=== PATIENT | male | born 1980 | race Caucasian/White ===

== ENCOUNTER 2019-09-28 14:39 | Outpatient (CLI) | payer OTHER, SELFPAY ==
--- NOTE | ~2019-09-28 | XR_ITS ---
EXAMINATION: XR shoulder LT min 2V EXAM DATE: 09/28/2019 15:25 INDICATION: No known recent injury provided at this time. Pain of the left shoulder. TECHNIQUE: The following left shoulder projections obtained: frontal projection with internal rotatio n, frontal projection with external rotation, Grashey, and scapular Y view (4+ views). There is no p rior study for comparison. FINDINGS: No evidence of left shoulder rotator cuff calcific tendinosis. There is mild acromioclav icular joint primary osteoarthritis. There are no acute fractures or dislocations identified. There is no subcutaneous gas. The soft tissue is unremarkable. There are no radiopaque foreign bodies. IMPRESSION: Mild left acromioclavicular joint osteoarthritis. Reviewed, dictated and finalized at location B. 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
--- NOTE | ~2019-09-28 | XR_ITS ---
EXAMINATION: XR chest 2V EXAM DATE: 09/28/2019 15:24 INDICATION: Posterior chest pain. Bilateral shoulder pain. TECHNIQUE: Frontal and lateral projections of the chest obtained and reviewed. There is no prior stacy dy for comparison. FINDINGS: The lungs are clear. There are no pleural effusions. The cardiomediastinal silhouette is within normal limits. There is no pneumothorax suspected. The bones and soft tissues are unremarkab le. IMPRESSION: Normal chest x-ray exam. Reviewed, dictated and finalized at location B. MATIC EDGER IMPRESSION: Normal chest x-ray exam.
--- NOTE | ~2019-09-28 | XR_ITS ---
EXAMINATION: XR shoulder RT min 2V EXAM DATE: 09/28/2019 15:26 INDICATION: No known recent injury provided at this time. Pain of the right shoulder. TECHNIQUE: The following right shoulder projections obtained: frontal projection with internal rotati on, frontal projection with external rotation, Grashey, and scapular Y view (4+ views). There is no prior study for comparison. FINDINGS: No evidence of right shoulder rotator cuff calcific tendinosis. There is moderate acromi oclavicular joint primary osteoarthritis. There are no acute fractures or dislocations identified. T here is no subcutaneous gas. The soft tissue is unremarkable. There are no radiopaque foreign bodi es. IMPRESSION: Moderate right acromioclavicular joint osteoarthritis. Reviewed, dictated and finalized at location B. CHANGER
--- NOTE | ~2019-09-28 | XR_ITS ---
EXAMINATION: XR lumbar spine 2-3V EXAM DATE: 09/28/2019 15:27 INDICATION: Low back pain. TECHNIQUE: Lumber spine frontal, lateral, lateral L5-S1 projections for interpretation. There is no prior study for comparison. FINDINGS: Vertebral body and disc heights are well-maintained. There is 3 mm retrolisthesis L5 on S 1. The vertebral bodies are otherwise aligned. Mild lumbar facet arthropathy. There are cholecystecto my clips. Sacrum, sacroiliac joints, sacral arcuate lines are intact. Paraspinal IMPRESSION: 1. Grade 1 retrolisthesis L5 on S1. 2. Mild facet arthropathy. Reviewed, dictated and finalized at location B. TREATMENT OFFSIDER
--- NOTE | ~2019-09-28 | XR_ITS ---
EXAMINATION: XR_CERV2-3V_CR EXAM DATE: 09/28/2019 15:25 INDICATION: No known recent injury provided at this time. Pain of the neck. TECHNIQUE: Cervical spine frontal, lateral, open-mouth odontoid projections. There is no prior stud y for comparison. FINDINGS: There is mild disc disease at C5-6. There is moderate reversal of the normal cervical lord osis which may be positional or spasm. There is no evidence of acute cervical fracture. The odontoid process is intact. Pre-dens space is normal. Prevertebral soft tissue is normal. There is mild cer vical facet arthropathy. There are no soft tissue abnormalities identified. The vertebral bodies ar e aligned. IMPRESSION: 1. Reversal cervical lordosis could indicate muscular spasm. 2. Mild spondylosis. Reviewed, dictated and finalized at location B. N [employer] SUPERVISOR
== END 2019-09-28 14:40 | disposition home or self-care (01) ==
PROVIDERS: PCP Internal Medicine; Visit Provider Internal Medicine
DX: R19.7 Diarrhea, unspecified (principal); M54.5 Low back pain; M54.2 Cervicalgia; M25.512 Pain in left shoulder; M25.511 Pain in right shoulder
CPT/HCPCS: 71046; 72040; 72100; 73030

== ENCOUNTER 2019-10-30 13:57 | Outpatient (RCR) | payer OTHER, SELFPAY ==
--- NOTE | 2019-10-30 15:00 | PTOPEVAL ---
Thank you for referring this patient to [facility]. Please review, sign, date and return this plan of care [facility]. I agree with and certify that the following plan of care is medically necessary. Referring Physician Date Admitting Provider: Attending Provider: Lorelei Dowell MD Referring Provider: *PT Outpatient Evaluation Start: 10/30/19 14:08 Freq: Status: Active Protocol: Document 10/30/19 14:08 VIC (Rec: 10/30/19 14:52 VIC [id number]) Therapy Assessment Status Assessment Status Assessment Status Evaluation Evaluation Information Problem Diagnosis neck pain, low back pain, left shoulder pain Onset 10/29/18 Subjective Information Pt. reports that he has had Query Text:As Reported By Patient/ worsening back pain over the Family past year. He describes back pain in the area of the low back that can radiate into the l.e. down to the calfs. He reports that back pain is constant. He does have chronic neck and left shoulder pain, but states that his low back is his worst pain. He reports that he avoids most activities due to chronic low back pain. He reports that neck and shoulder do not limit his activity as much. He avoids any vigorious activities due to his back pain. He is not currently working and has not for a long period. 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 He reports that his goal is to decrease his low back pain. Prior Level of Function Activity Level (Last 3 Months) Occupation unemployed Hand Dominance Right Activity of Daily Living Ability Independent Indoor/Home Mobility Independent Community Mobility Independent Stairs Ability Independent Functional Cognition (Planning, Shopping Independent , Taking Medications) Cooking Yes Cleaning Yes Laundry Yes Shopping Yes Driving No Pain
--- NOTE | 2019-11-01 13:14 | PCPTNOTE ---
11/01/19-pt cancelled secondary to lack of transportation.-.
--- NOTE | 2019-12-14 07:25 | PTOPEVAL ---
Thank you for referring Jake Izquierdo II to [facility]. Please review, sign, date and return this plan of care [facility]. I agree with and certify that the following plan of care is medically necessary. Referring Physician Date Admitting Provider: Attending Provider: Lorelei Dowell MD Referring Provider: *PT Outpatient Evaluation Start: 10/30/19 14:08 Freq: Status: Active Protocol: Document 12/13/19 14:00 VIC (Rec: 12/14/19 07:24 VIC [id number]) Therapy Assessment Status Assessment Status Assessment Status Discharge Evaluation Information Problem Diagnosis acute worsening neck pain Subjective Information Pt. reports that nothing is Query Text:As Reported By Patient/ relieving his pain. He Family continues to describe pain across the low back and into the neck and left shoulder blade. He reports that his day consist of navigating stairs and doing housework. He reports that he cannot enjoy his normal recreational activities. He reports that he is ready to quit therapy due to its inability to help relieve pain. Pain Assessment Pain Scale Pain Scale Used Numeric (1 - 10) Self Report Pain Assessment Left Shoulder(s) Reported Pain Level 5 Neck Reported Pain Level 5 Lower Back Reported Pain Level 6 Pain Score Pain Score 5,5,6: Self Report Cervical and Lumbar ROM Cervical ROM Cervical Flexion (0-60) 50 Query Text:Active in Degrees Cervical Extension (0-70) 60 Query Text:Active in Degrees Cervical Lateral Flexion Right (0-50) 40 Query Text:Active in Degrees Cervical Lateral Flexion Left (0-50) 32 Query Text:Active in Degrees Cervical Rotation Right (0-90) 75 Query Text:Active in Degrees Cervical Rotation Left (0-90) 60 Query Text:Active in Degrees Lumbar ROM Lumbar Flexion Active Mid Melara Query Text:Hands to: Lumbar Lateral Flexion Right (0-40) 40 Query Text:Active in Degrees Lumbar Lateral Flexion Left (0-40) 40 Query Text:Active in Degrees Palpation Assessment Palpation Palpation TTP noted at the area of the medial left shoulder blade and into the cervical paraspinals . Special Test-Spine Cervical Spine Special Tests Foraminal Compression (Spurling) Posit
== END 2019-12-13 10:07 | disposition home or self-care (01) ==
LOC: CHSPT 13:57
PROVIDERS: PCP Internal Medicine; Visit Provider Internal Medicine
DX: M54.2 Cervicalgia (principal); M54.9 Dorsalgia, unspecified; M25.512 Pain in left shoulder; M25.511 Pain in right shoulder; M19.90 Unspecified osteoarthritis, unspecified site
CPT/HCPCS: 97012; 97014; 97110; 97161; 97164; G0283

== ENCOUNTER 2019-12-29 08:10 | Outpatient (CLI) | payer OTHER, SELFPAY ==
--- NOTE | ~2019-12-29 | MR_ITS ---
EXAMINATION: MR cervical spine wo con DATE: 12/29/2019 09:05 INDICATION: Neck pain. TECHNIQUE: Magnetic resonance imaging (MRI) of the cervical spine was performed without intravenous c ontrast. Sequences included sagittal T2-weighted FSE, sagittal T2-weighted FS FSE, sagittal T1-weight ed FSE, axial MERGE, and axial T2-weighted FSE. COMPARISON: Cervical spine radiographs 09/28/2019 FINDINGS: Bone alignment is normal. Vertebral body heights and intervertebral disc heights are normal . The spinal cord signal intensity is normal. The following disc levels are specifically discussed: C2-C3: The disc does not extend beyond the endplate margin. There is mild left uncovertebral joint os teoarthritis. There is mild bilateral facet joint osteoarthritis. There is mild left neural foraminal stenosis. There is no central canal stenosis. C3-C4: The disc is mildly bulging. There is no uncovertebral joint osteoarthritis. There is mild bila teral facet joint osteoarthritis. There is mild left neural foraminal stenosis. There is no central c anal stenosis. C4-C5: The disc is mildly bulging. There is no uncovertebral joint osteoarthritis. There is mild bila teral facet joint osteoarthritis. There is no neural foraminal stenosis. There is mild central canal stenosis. C5-C6: There is a right central extrusion. There is mild right uncovertebral joint osteoarthritis. Th ere is no facet joint osteoarthritis. There is mild right neural foraminal stenosis. There is mild ce ntral canal stenosis with ventral indentation of spinal cord. C6-C7: There is a left central and foraminal zone extrusion. There is mild left uncovertebral joint o steoarthritis. There is no facet joint osteoarthritis. There is mild left neural foraminal stenosis. There is mild central canal stenosis. C7-T1: The disc does not extend beyond the endplate margin. There is no uncovertebral joint osteoarth ritis. There is mild bilateral facet joint osteoarthritis. There is no neural foraminal stenosis. The re is no central canal stenosis. IMPRESSION: 1. Mild cervical spondylosis. Reviewed, dictated and finalized at location A.
== END 2019-12-29 08:11 | disposition home or self-care (01) ==
PROVIDERS: PCP Internal Medicine; Visit Provider Internal Medicine
DX: M54.2 Cervicalgia (principal)
CPT/HCPCS: 72141

== ENCOUNTER 2020-01-02 14:59 | Outpatient (RCR) | payer OTHER, SELFPAY ==
--- NOTE | 2020-01-04 09:58 | PTOPEVAL ---
Thank you for referring Jake Izquierdo to [facility]. Please review, sign, date and return this plan of care [facility]. I agree with and certify that the following plan of care is medically necessary. Referring Physician Date Admitting Provider: Attending Provider: Lorelei Dowell MD Referring Provider: *PT Outpatient Evaluation Start: 01/02/20 15:06 Freq: Status: Active Protocol: Document 01/02/20 15:00 JTF (Rec: 01/02/20 15:42 [facility] [id number]) Therapy Assessment Status Assessment Status Assessment Status Evaluation Evaluation Information Problem Diagnosis L shoulder pain, low back pain , neck pain Onset 01/01/20 Subjective Information patient reports he did have an Query Text:As Reported By Patient/ MRI of the cervical spine Family that came back negative. he reports he is still having pain in the L shoulder and the lower back. he reports he is trying to get an MRI of the low back and the shoulder. he reports he is still having pain in the neck as well. he reports he has increased pain in the L shoulder with reaching up overhead. he reports he was reaching for cooking spray and was buckled under pain. he reports the back is increased in pain with standing, walking, bending. Prior Level of Function Comments Additional Prior Level of Function patient reports he has been Comments having these similar issues for about 2 years or more. Pain Assessment Timing of Pain Assessment Timing of Pain Assessment Assessment Pain Scale Pain Scale Used Numeric (1 - 10) Self Report Pain Assessment Neck Reported Pain Level 3 Pain Description Dull Lowest Pain Intensity 2 Greatest Pain Intensity 3 Lower Back Reported Pain Level 7 Pain Description Shooting Lowest Pain Intensity 5 Greatest Pain Intensity 10 Left Shoulder(s) Reported Pain Level 4 Pain Description Dull Other Pain Description knotting up Lowest Pain Intensity 4 Greatest Pain Intensity 9 Pain Score Pain Score 4,7,3: Self Report Additional Pain Score Comments patient reports he has pain
== END 2020-02-02 16:10 | disposition home or self-care (01) ==
LOC: CHSPT 14:59
PROVIDERS: PCP Internal Medicine; Visit Provider Internal Medicine
DX: M25.512 Pain in left shoulder (principal); M54.5 Low back pain; M54.2 Cervicalgia
CPT/HCPCS: 97012; 97014; 97110; 97140; 97162; G0283

== ENCOUNTER 2020-05-22 08:27 | Outpatient (CLI) | payer OTHER, SELFPAY ==
--- NOTE | ~2020-05-22 | MR_ITS ---
EXAMINATION: MR lumbar spine wo con EXAM DATE: 05/22/2020 09:24 INDICATION: Low back pain. TECHNIQUE: Multi-sequential, multiplanar MR images of the lumbar spine were obtained without contrast . Sagittal T1, T2, T2 fat saturation images. Axial T2 weighted images. There is no prior study for comparison. FINDINGS: The vertebral bodies are aligned in the AP dimension. Vertebral body and disc heights ar e well-maintained. There are no suspicious marrow signal abnormalities. The conus medullaris termin ates at the T12-L1 level and has normal signal intensity and morphology. Paraspinal soft tissue is u nremarkable. Level by level evaluation: T12-L1: Disc does not extend beyond the endplate margin. Facet arthropathy: None. Neural foraminal stenosis: No stenosis. Central canal stenosis: No stenosis. L1-L2: Disc does not extend beyond the endplate margin. Facet arthropathy: None. Neural foraminal stenosis: No stenosis. Central canal stenosis: No stenosis. L2-L3: Disc does not extend beyond the endplate margin. Facet arthropathy: None. Neural foraminal stenosis: No stenosis. Central canal stenosis: No stenosis. L3-L4: Disc does not extend beyond the endplate margin. Facet arthropathy: Minimal. Neural foraminal stenosis: No stenosis. Central canal stenosis: No stenosis. L4-L5: Disc does not extend beyond the endplate margin. Facet arthropathy: Mild. Neural foraminal stenosis: No stenosis. Central canal stenosis: No stenosis. L5-S1: Disc does not extend beyond the endplate margin. Facet arthropathy: Mild. Neural foraminal stenosis: No stenosis. Central canal stenosis: No stenosis. IMPRESSION: 1. Mild lower lumbar facet arthropathy. Reviewed, dictated and finalized at location B.
== END 2020-05-22 08:28 | disposition home or self-care (01) ==
PROVIDERS: PCP Internal Medicine; Visit Provider Internal Medicine
DX: M54.5 Low back pain (principal)
CPT/HCPCS: 72148

== ENCOUNTER 2020-06-10 00:55 | Outpatient (CLI) | payer OTHER, SELFPAY ==
[2020-06-10 16:30] LABS: SARS-CoV-2 RNA PCR Negative
== END 2020-06-10 00:56 | disposition home or self-care (01) ==
LOC: ANHCOVIDDT 00:55
PROVIDERS: PCP Internal Medicine; Visit Provider Plastic Surgery
DX: Z01.812 Encounter for preprocedural laboratory examination (principal); Z20.828 Contact with and (suspected) exposure to other viral communicable diseases
CPT/HCPCS: 87635; C9803; U0003

== ENCOUNTER 2020-06-12 00:54 | Day surgery (SDC) | payer OTHER, SELFPAY ==
[2020-06-07 14:50] VITALS: BMI 28.3
--- NOTE | 2020-06-12 07:03 | WPDHPUPDATE1 ---
History and Physical Update Update Date/Time: 06/12/20 07:03 History and Physical has been reviewed, including an updated exam of the patient. There are NO changes in the patient's condition. Risks, benefits, and alternatives have been discussed and questions answered. Patient agrees to proceed with procedure.
--- NOTE | 2020-06-12 08:48 | PM.OP ---
Procedure Note - Brief Procedure Note - Brief Date of procedure: 06/12/20 Pre-op diagnosis: Right Carpal Tunnel Post-op diagnosis: same Procedure performed: Right open carpal tunnel release. Anesthesia: local Surgeon: Willard Hills MD Estimated blood loss (mL): 2 Drains: No Packing: No Pathology: none sent Complications: No immediate complications Condition: stable Disposition: same day
[2020-06-12 09:00] VITALS: BP 135/83; PULSE 99; RESP 16; O2SAT 99
[2020-06-12] MEDS: LIDO 1%/EPINEPHRINE 1:100,000 20 ML VIAL INFILTRATE (09:04)
[2020-06-12 09:10] VITALS: BP 128/76; PULSE 89; RESP 16; O2SAT 99
--- NOTE | 2020-06-12 09:23 | P.OP_ITS ---
Procedure Note - Detailed Date of procedure: 06/12/20 Pre-op diagnosis: Right Carpal Tunnel Post-op diagnosis: same Procedure performed: Right open carpal tunnel release Description of procedure: The right wrist was marked as the patient waited in the holding area. He was taken to the operating room and placed supine on the operating table. A time-out was held and confirmed. The extremity was prepped and draped in usual fashion. The site was remarked for the incision and locally infiltrated with 1% with epinephrine. The incision was made as marked and dissection was carried through the subcutaneous tissue to the palmar fascia. Th is and the carpal ligament were incised with a 15. Blade. Under 3 point retraction the ligament divided distally and proximally to completely release it. No unusual anatomy was noted. The skin was closed with interrupted 4-0 nylon suture. The usual bandage was applied and the patient was discharged from the operating room in stable condition. Anesthesia: local Surgeon: Willard Hills MD Estimated blood loss (mL): 1 Tourniquet time (min): 0 Drains: No Packing: No Pathology: none sent Complications: No immediate complications Condition: stable Disposition: same day
[2020-06-12 09:25] VITALS: BP 132/86; PULSE 90; RESP 16
== END 2020-06-12 09:44 | disposition home or self-care (01) ==
PROVIDERS: PCP Internal Medicine; Visit Provider Plastic Surgery
PROC: (CPT 64721; principal; 2020-06-12 09:00)
DX: G56.01 Carpal tunnel syndrome, right upper limb (principal)
CPT/HCPCS: 64721; A9270

== ENCOUNTER 2020-07-01 01:42 | Outpatient (CLI) | payer OTHER, SELFPAY ==
[2020-07-01 21:23] LABS: SARS-CoV-2 RNA PCR Negative
== END 2020-07-01 01:43 | disposition home or self-care (01) ==
LOC: ANHCOVIDDT 01:42
PROVIDERS: PCP Internal Medicine; Visit Provider Plastic Surgery
DX: Z01.812 Encounter for preprocedural laboratory examination (principal); Z20.828 Contact with and (suspected) exposure to other viral communicable diseases
CPT/HCPCS: 87635; C9803; U0003

== ENCOUNTER 2020-07-04 02:05 | Day surgery (SDC) | payer OTHER, SELFPAY ==
[2020-06-26 11:49] VITALS: BMI 28.3
--- NOTE | 2020-07-04 07:23 | WPDHPUPDATE1 ---
History and Physical Update Update Date/Time: 07/04/20 07:23 History and Physical has been reviewed, including an updated exam of the patient. There are NO changes in the patient's condition. Risks, benefits, and alternatives have been discussed and questions answered. Patient agrees to proceed with procedure.
[2020-07-04 07:30] VITALS: BP 134/81; PULSE 95; TEMP 36.7; O2SAT 100
[2020-07-04 07:55] VITALS: BP 139/84; PULSE 96; RESP 20; O2SAT 98
[2020-07-04] MEDS: LIDO 1%/EPINEPHRINE 1:100,000 20 ML VIAL 7 ML INFILTRATE (08:04)
[2020-07-04 08:05] VITALS: BP 148/77; PULSE 83; RESP 20; O2SAT 95
[2020-07-04] MEDS: BACITRACIN OINTMENT 15 GM TUBE 1 APPLIC TOPICAL (08:09)
[2020-07-04 08:10] VITALS: BP 141/76; PULSE 82; RESP 12; O2SAT 97
--- NOTE | 2020-07-04 08:12 | SUR.OPER ---
Ebl=1ml
[2020-07-04 08:20] VITALS: BP 119/68; PULSE 83; RESP 16; O2SAT 98
--- NOTE | 2020-07-04 18:53 | PM.OP ---
Procedure Note - Brief Procedure Note - Brief Date of procedure: 07/04/20 Pre-op diagnosis: Left Carpal Tunnel Syndrome Post-op diagnosis: same Procedure performed: LOCTR Anesthesia: local Surgeon: Willard Hills MD Estimated blood loss (mL): 2 Tourniquet time (min): 0 Drains: No Packing: No Pathology: none sent Complications: No immediate complications Condition: stable Disposition: same day
--- NOTE | 2020-07-04 18:55 | PM.PROC ---
Procedure Note - Detailed Date of procedure: 07/04/20 Pre-op diagnosis: Left Carpal Tunnel Syndrome Post-op diagnosis: same Procedure performed: Left open carpal tunnel release Description of procedure: The left wrist was marked over the carpal tunnel in preop. The patient was taken to the operating room and placed supine on the operating table. A time-out was held and confirmed. The extremity was prepped draped in usual fashion. The operative site was remarked and locally infiltrated with 1% lidocaine with epinephrine. No tourniquet was used. The incision was made as marked and dissection was carried bluntly through the subcutaneous tissue to the palmar fascia.This and a carpal ligament were incised with a 15. blade for complete release. There is no unusual anatomy noted. The wound was closed with interrupted 4 0 nylon suture in the usual bandage was applied. He was discharged home with instructions on wound care and follow-up he has a prescription for hydrocodone /APAP 8. Surgeon: Willard Hills MD
== END 2020-07-04 08:30 | disposition home or self-care (01) ==
PROVIDERS: PCP Internal Medicine; Visit Provider Plastic Surgery
PROC: (CPT 64721; principal; 2020-07-04 07:30)
DX: G56.02 Carpal tunnel syndrome, left upper limb (principal)
CPT/HCPCS: 64721; A9270; J7030

== ENCOUNTER 2020-09-24 08:51 | Outpatient (RCR) | payer OTHER, SELFPAY ==
--- NOTE | 2020-09-24 11:59 | PTOPEVAL ---
Thank you for referring Jake Izquierdo to [facility].? The patient is scheduled to be seen for therapy? __3__x/week for 12 visits. Please review, sign, date and return this plan of care [facility]. I agree with and certify that the following plan of care is medically necessary. Referring Physician Date Admitting Provider: Attending Provider: JERRELL FARRELL Referring Provider: TASHA Outpatient Evaluation Start: 09/24/20 09:05 Freq: Status: Active Protocol: Document 09/24/20 09:05 ACR (Rec: 09/24/20 11:03 ACR [id number]) Therapy Assessment Status Assessment Status Assessment Status Evaluation Outpatient Past Medical History Neurological History Hx Neurological Disorders No Significant History Cardiovascular History Hx Cardiac Disorders No Significant History Respiratory History Hx Respiratory Disorders No Significant History Gastrointestinal History Hx Cholecystectomy Yes Hx Irritable Bowel Yes Genitourinary History Hx Genitourinary Disorders No Significant History Musculoskeletal History Hx Back Pain Yes: BACK/NECK PAIN Hx Fractures Yes: L ARM Hx Orthopedic Surgery Yes: ORIF L ARM, RT CTR Hx Other Musculoskeletal Disorders Yes: LT CARPAL TUNNEL SYNDROME Hematological History Hx Hematological Disorders No Significant History Endocrine History Hx Endocrine Disorders No Significant History HEENT History Hx Sinus Problems Yes Integumentary History Hx Skin Disorders No Significant History Reproductive History Hx Reproductive Disorders No Significant History Psychosocial History Hx Psychiatric Disorders No Significant History Pain History History of Any Previous or Ongoing No Significant History Instance of Pain Anesthesia History Hx Anesthesia Reactions No Significant History Evaluation Information Problem Diagnosis L shoulder pain Onset 07/24/20 Subjective Information Patient states that he feels a Query Text:As Reported By Patient/ pulling sensation in the back Family and shoulder when it starts to cause pain. Patient states that he started having L shoulder pain in 2016 and his neck started locking up and it got really bad in decemeber when he went to the MD. Patient states that he does not sleep at night because of his back, shoulder, ribs, and neck. Patient states that he got an MRI on the neck and
--- NOTE | 2020-10-02 10:12 | PCPTNOTE ---
patient called and cancelled appt. MANOHAR
--- NOTE | 2020-10-18 14:25 | PTOPEVAL ---
Thank you for referring Jake Izquierdo to [facility].? The patient is scheduled to be seen for therapy? ____x/week for ___ weeks. Please review, sign, date and return this plan of care [facility]. I agree with and certify that the following plan of care is medically necessary. Referring Physician Date Admitting Provider: Attending Provider: JERRELL FARRELL Referring Provider: TASHA Outpatient Evaluation Start: 09/24/20 09:05 Freq: Status: Active Protocol: Document 10/18/20 13:11 ACR (Rec: 10/18/20 14:21 ACR [email or web address]) Therapy Assessment Status Assessment Status Assessment Status Discharge Outpatient Past Medical History Neurological History Hx Neurological Disorders No Significant History Cardiovascular History Hx Cardiac Disorders No Significant History Respiratory History Hx Respiratory Disorders No Significant History Gastrointestinal History Hx Cholecystectomy Yes Hx Irritable Bowel Yes Genitourinary History Hx Genitourinary Disorders No Significant History Musculoskeletal History Hx Back Pain Yes: BACK/NECK PAIN Hx Fractures Yes: L ARM Hx Orthopedic Surgery Yes: ORIF L ARM, RT CTR Hx Other Musculoskeletal Disorders Yes: LT CARPAL TUNNEL SYNDROME Hematological History Hx Hematological Disorders No Significant History Endocrine History Hx Endocrine Disorders No Significant History HEENT History Hx Sinus Problems Yes Integumentary History Hx Skin Disorders No Significant History Reproductive History Hx Reproductive Disorders No Significant History Psychosocial History Hx Psychiatric Disorders No Significant History Pain History History of Any Previous or Ongoing No Significant History Instance of Pain Anesthesia History Hx Anesthesia Reactions No Significant History Evaluation Information Problem Diagnosis L shoulder pain Onset 07/24/20 Subjective Information Patient states that there has Query Text:As Reported By Patient/ been no improvement since the Family beginning of therapy. Patient states that he continues to have consistent pain and today a muscle feels like it is eating his shoulder blade and pulsing the back of the arm. He states that coming here helps him mentally, but there has been no change physically since the beginning of therapy . Pain Assessment Timing of Pain Assessment Timing of Pain Assessment Assessment Pain Scale Pa
== END 2020-10-18 15:57 | disposition home or self-care (01) ==
LOC: CHSPT 08:51
PROVIDERS: PCP Internal Medicine
DX: M25.512 Pain in left shoulder (principal)
CPT/HCPCS: 97012; 97014; 97110; 97140; 97161; G0283